=== PATIENT | female | born 1970 | race Caucasian/White ===

== ENCOUNTER → 2017-03-05 | Outpatient (CLI) | payer BC ==
[~2017-03-05] MED LIST: ANAPROX DS550 MG PO; BACTRIM DS 8001 TA1 PO; CELEXA10 MG PO; CIPRO250 MG PO; FLEXERIL10 MG PO; KEFLEX500 MG PO; MOTRIN800 MG PO; Motrin,Rufen800 MG PO; NEURONTIN600 MG PO; NOVOLIN R100 U/ML SC; NOVOLOG1 UNIT/0.0 IV; PRILOSEC10 MG PO; PRILOSEC20 MG PO; PYRIDIUM200 MG PO; TRESIBA FL100 UNIT/1 SQ; ULTRAM50 MG PO; ZOLOFT25 MG PO; Zofran4 MG PO
[2017-03-05 08:52] LABS: ALKALINE PHOSPHATASE 105 U/L (45-117); BILIRUBIN, TOTAL 0.3 mg/dl (0.2-1.0); BUN 18 mg/dl (7-24); CARBON DIOXIDE 29 mmol/L (21-32); CHLORIDE 110 mmol/L (98-107); CHOLESTEROL 176 mg/dL (<200); EST GLOM FILT AFRICAN AMERICAN > 60 ml/min; FREE T4 0.99 ng/dl (0.76-1.46); GLUCOSE 62 mg/dL (65-99); HDL CHOLESTEROL 57 mg/dl (40-60); LDL CHOLESTEROL 98 mg/dL (9-159); POTASSIUM 3.8 mmol/L (3.5-5.1); SGOT/AST 11 IU/L (3-35); SGPT/ALT 21 U/L (12-78); SODIUM 147 mmol/L (136-145); TOTAL PROTEIN 6.2 gm/dL (6.4-8.2); TRIGLYCERIDES 106 mg/dl (<150); VLDL CHOLESTEROL 21 mg/dL (6-40)
[2017-03-05 09:01] LABS: HEMOGLOBIN A1c 9.3 % (4.8-5.6)
== END | disposition home or self-care (01) ==
LOC: LAB 07:51
PROVIDERS: Internal Medicine Endocrinology, Diabetes & Metabolism
DX: E11.21 Type 2 diabetes mellitus with diabetic nephropathy (principal); E11.40 Type 2 diabetes mellitus with diabetic neuropathy, unspecified; E04.0 Nontoxic diffuse goiter

== ENCOUNTER 2018-09-26 04:28 | Emergency (ER) | payer BC ==
[~2018-09-26] VITALS: Ht 170.1 cm; Wt 104.8 kg
[2018-09-26] MEDS ORDERED: IBU800 MG PO (04:40)
== END 2018-09-26 04:59 | disposition home or self-care (01) ==
LOC: ED 04:28
DX: M25.562 Pain in left knee (principal); Z79.4 Long term (current) use of insulin; Z79.899 Other long term (current) drug therapy; X50.1XXA Overexertion from prolonged static or awkward postures, initial encounter; Y93.01 Activity, walking, marching and hiking; Y92.89 Other specified places as the place of occurrence of the external cause; Y99.8 Other external cause status

== ENCOUNTER 2021-07-09 15:08 | Emergency (ER) | payer BC ==
[~2021-07-09] VITALS: Ht 170.1 cm; Wt 110.2 kg
[~2021-07-09 15:08] MED LIST changes: +IBU800 MG PO
== END 2021-07-09 17:00 | disposition home or self-care (01) ==
LOC: ED 15:08
DX: I83.892 Varicose veins of left lower extremity with other complications (principal); Z79.899 Other long term (current) drug therapy

== ENCOUNTER → 2022-02-23 | Outpatient (CLI) | payer BC ==
[2022-02-23 16:56] LABS: ALKALINE PHOSPHATASE 111 U/L (45-117); BUN 19 mg/dl (7-24); CHLORIDE 111 mmol/L (98-107); CHOLESTEROL 175 mg/dL (<200); CREATININE 0.71 mg/dL (0.55-1.02); POTASSIUM 3.9 mmol/L (3.5-5.1); SGOT/AST 14 IU/L (3-35); SGPT/ALT 18 U/L (12-78); SODIUM 145 mmol/L (136-145); TOTAL PROTEIN 6.3 gm/dL (6.4-8.2); TRIGLYCERIDES 117 mg/dl (<150)
[2022-02-23 17:01] LABS: FREE T4 1.05 ng/dl (0.76-1.46); LDL CHOLESTEROL 99 mg/dL (9-159)
== END | disposition home or self-care (01) ==
LOC: LAB 16:23
PROVIDERS: ATTEND Internal Medicine Endocrinology, Diabetes & Metabolism
DX: I10 Essential (primary) hypertension (principal); E10.40 Type 1 diabetes mellitus with diabetic neuropathy, unspecified; E78.2 Mixed hyperlipidemia; E04.0 Nontoxic diffuse goiter

== ENCOUNTER → 2022-04-22 | Outpatient (CLI) | payer BC | END | disposition home or self-care (01) | LOC: COVID19 00:50 | PROVIDERS: ATTEND Internal Medicine | DX: Z20.822 Contact with and (suspected) exposure to COVID-19 (principal) ==

== ENCOUNTER 2023-12-29 08:18 | Emergency (ER) | payer BC ==
[~2023-12-29] VITALS: Ht 170.1 cm; Wt 108.0 kg
[2023-12-29] MEDS ORDERED: Sulfamethoxazole/Trimethopri 1 TAB TAB PO ONE (08:35)
[2023-12-29] MEDS ORDERED: CLINDAMYCIN HC300 MG PO (08:38)
[2023-12-29] MEDS ORDERED: CLINDAMYCIN HCL 300 MG CAPSULE PO ONE (08:40)
== END 2023-12-29 09:17 | disposition home or self-care (01) ==
LOC: ED 08:18
DX: L08.9 Local infection of the skin and subcutaneous tissue, unspecified (principal); I10 Essential (primary) hypertension; E78.5 Hyperlipidemia, unspecified; E10.9 Type 1 diabetes mellitus without complications; Z98.890 Other specified postprocedural states